=== PATIENT | female | born 1960 | race Native Hawaiian/Other Pacific Islander ===

== ENCOUNTER 2017-09-25 22:27 | Observation (INO) | payer OTHER ==
--- NOTE | 2017-09-26 00:30 | ED PDOC ---
Arrival/HPI <Gunnar Rucker - Last Filed: 09/26/17 03:16> - General Historian: Patient EM Caveat: Unstable Vital Signs - History of Present Illness Time/Duration: Prior to Arrival Symptom Onset: Gradual Symptom Course: Unchanged Quality: Aching (headache) Severity Level: Mild Activities at Onset: Rest Context: Sitting, Standing, Home <Antoinette Babin - Last Filed: 09/26/17 11:50> - General Chief Complaint: Headache Time Seen by Provider: 09/25/17 23:26 - History of Present Illness Narrative History of Present Illness (Text): 09/26/17 00:25 Pt is a 57 yo F c/o headache and chest discomfort x 2 days. Lately has felt "off" with head pain and racing heart. She is worried that she might have something going on with her heart and felt she needed to come in for evaluation. She describes her head pain as mild but annoying; she reports feeling slightly warm but not sweating with associated left shoulder pain. PMH includes HTN and DMII on medication. She took her meds this am as she always does and blood glucose was noted as 98. Denies chest pain, sob, fever, chills, syncope, GIB, or recent trauma. 09/26/17 02:24 09/26/17 02:26 09/26/17 03:27 (Antoinette Babni) Past Medical History - Provider Review Nursing Documentation Reviewed: Yes - Travel History Have you recently traveled outside [place] w/in the past 3 mons?: No - Infectious Disease Hx of Infectious Diseases: None - Tetanus Immunization Tetanus Immunization: Unknown - Reproductive Menopause: Yes - Cardiac Hx Cardiac Disorders: Yes Hx Hypertension: Yes - Pulmonary Hx Respiratory Disorders: Yes Hx Asthma: Yes - Neurological Hx Neurological Disorder: No - HEENT Hx HEENT Disorder: No - Renal Hx Renal Disorder: No - Endocrine/Metabolic Hx Endocrine Disorders: Yes Hx Diabetes Mellitus Type 2: Yes - Hematological/Oncological Hx Blood Disorders: No - Integumentary Hx Dermatological Disorder: No - Musculoskeletal/Rheumatological Hx Musculoskeletal Disorders: No - Gastrointestinal Hx Gastrointestinal Disorders: No - Genitourinary/Gynecological Hx Genitourinary Disorders: No - Psychiatric Hx Psychophysiologic Disorder: No Hx Substance Use: No - Surgical History Hx Dilation and Curettage: Yes <Antoinette Babin - Last Filed: 09/26/17 11:50> Family/Social History - Physician Review Nursing Documentation Reviewed: Yes Family/Social History: No Known Family HX Smoking Status: Never Smoked Hx Alcohol Use: Yes Frequency of alcohol use: Socially Hx Substance Use: No <Antoinette Babin - Last Filed: 09/26/17 11:50> Allergies/Home Meds <AlkaGunnar - Last Filed: 09/26/17 03:16> <Antoinette Babin - Last Filed: 09/26/17 11:50> Allergies/Adverse Reactions: Allergies Unobtainable Allergy (Verified 09/25/17 22:34) Home Medications: Home Meds Medication Instructions Recorded Confirmed Glimepiride [amaRYL] 2 mg PO DAILY 09/25/17 09/25/17 Telmisartan/Hydrochlorothiazid 1 tab PO DAILY 09/25/17 09/25/17 [Telmisartan-Hydrochlorothiazide 12.5 mg-80 mg] Review of Systems - Review of Systems Constitutional: Normal. absent: Fatigue, Weight Change, Fevers, Night Sweats, Other Eyes: Normal. absent: Vision Changes, Photophobia, Eye Pain, Other ENT: Normal. absent: Hearing Changes, Tinnitus, TMJ Pain, Voice Changes, Sore Throat, Rhinorrhea, Epistaxis, Sinus Congestion, Other Respiratory: Normal. absent: SOB, Cough, Sputum, Wheezing, Other Cardiovascular: Palpitations. absent: Normal, Chest Pain, Edema, Calf Pain, REDDY , Orthopnea, SY, Syncope, Other Gastrointestinal: Normal. absent: Abdominal Pain, Stool Changes, Constipation, Diarrhea, Nausea, Vomiting, Appetite Changes, Hematochezia, Hematemesis, Anorexia, Food Intolerance, Other Genitourinary Female: Normal Musculoskeletal: Normal Skin: Normal Neurological: Headache. absent: Normal, Dizziness, Focal Weakness, Gait Changes , Speech Changes, SC, Facial Droop, DE, Disequilibrium, SE, Seizure, Other Endocrine: Normal Hemo/Lymphatic: Normal Psychiatric: Normal <Antoinette Babin - Last Filed: 09/26/17 11:50> Physical Exam Vital Signs Reviewed: Yes Temperature: Afebrile Blood Pressure: Normal Pulse: Regular Respiratory Rate: Normal Appearance: Positive for: Well-Appearing, Comfortable Pain Distress: Mild Mental Status: Positive for: Alert and Oriented X 3 Finger Stick Blood Glucose: 112 - Systems Exam Head: Present: Atraumatic, Normocephalic, Tenderness (occipital ) Pupils: Present: PERRL Extroacular Muscles: Present: EOMI Conjunctiva: Present: Normal, Injected Ears: Present: Normal, NORMAL TM Mouth: Present: Moist Mucous Membranes Pharnyx: Present: Normal Neck: Present: Normal Range of Motion Respiratory/Chest: Present: Clear to Auscultation, Good Air Exchange. No: Respiratory Distress, Accessory Muscle Use Cardiovascular: Present: Normal S1, S2, Peripheal Pulses Present, Tachycardic. No: Murmurs Abdomen: Present: Normal Bowel Sounds. No: Tenderness, Distention, Peritoneal Signs Back: Present: Normal Inspection Upper Extremity: Present: Normal Inspection. No: Cyanosis, Edema Lower Extremity: Present: Normal Inspection. No: Edema Neurological: Present: GCS=15, CN II-XII Intact, Speech Normal Skin: Present: Warm, Dry, Normal Color. No: Rashes Psychiatric: Present: Alert, Oriented x 3, Normal Insight, Normal Concentration <Antoinette Babin - Last Filed: 09/26/17 11:50> Vital Signs Temp Pulse Resp BP Pulse Ox 09/26/17 11:18 95 H 17 164/93 H 100 09/26/17 09:29 160/90 H 09/26/17 09:25 98 H 18 100 09/26/17 07:30 98 F 80 18 151/95 H 98 09/26/17 05:50 83 17 140/93 H 99 09/26/17 05:05 85 158/103 H 09/26/17 04:38 83 18 161/100 H 99 09/26/17 01:13 76 18 170/104 H 99 09/25/17 22:52 97.7 F 103 H 18 179/96 H 99 Medical Decision Making <Gunnar Rucker - Last Filed: 09/26/17 03:16> - Lab Interpretations I have reviewed the lab results: Yes - EKG Interpretation Interpreted by ED Physician: Yes (NSR) <Antoinette Babin - Last Filed: 09/26/17 11:50> ED Course and Treatment: Pt is a 57 yo F c/o headache x 2 days. PMH includes HTN and DMII on medication. Plan: 1. workup for ACS-->cbc, cmp, trop., cxr, cardiac enzymes 2. UTI-->UA 3. Influenza-->Rapid Flu Iv fluids given (1L over 60 mins); pt remains anxious with new symptom of ' heartburn' Resident was contacted to admit the patient to remote telemetry for observation Dr. Dexter consulted (Antoinette Babin) - Lab Interpretations Lab Results: 09/26/17 00:50 09/26/17 00:50 Lab Results 09/26/17 00:50: Thyroxine (T4) 7.5, Total T3 1.35, TSH 3rd Generation 3.51 09/26/17 00:50: Urine Color Yellow, Urine Appearance Clear, Urine pH 6.0, Ur Specific [place] 1.010, Urine Protein Negative, Urine Glucose (UA) Negative, Urine Ketones Negative, Urine Blood Negative, Urine Nitrate Negative, Urine Bilirubin Negative, Urine Urobilinogen 0.2, Ur Leukocyte Esterase Trace H, Urine RBC 0 - 2, Urine WBC 0 - 2, Ur Epithelial Cells 0 - 2 09/26/17 00:50: Sodium 139, Potassium 4.1, Chloride 101, Carbon Dioxide 29, Anion Gap 13, BUN 16, Creatinine 0.6 L, Est GFR ( Amer) > 60, Est GFR ( Non-Af Amer) > 60, Random Glucose 75, Calcium 10.1, Total Bilirubin 0.6, AST 37 H, ALT 38, Alkaline Phosphatase 98, Lactate Dehydrogenase 761 H, Total Creatine Kinase 172, Troponin I < 0.01, Total Protein 8.2, Albumin 4.8, Globulin 3.4, Albumin/Globulin Ratio 1.4 09/26/17 00:50: WBC 8.5, RBC 4.84, Hgb 14.4, Hct 41.8, MCV 86.4, MCH 29.8, MCHC 34.4, RDW 15.7 H, Plt Count 254, MPV 10.0, Gran % 41.0 L, Lymph % (Auto) 46.4 H , [place] % (Auto) 8.3 H, Eos % (Auto) 3.7, Baso % (Auto) 0.6, Gran # 3.50, Lymph # 4.0 H, [place] # 0.7 H, Eos # 0.3, Baso # 0.05 - RAD Interpretation Radiology Orders: 09/26/17 02:43 CHEST TWO VIEWS (PA/LAT) [RAD] Stat - Medication Orders Current Medication Orders: Losartan Potassium (Cozaar) 100 mg PO DAILY [facility] Last Admin: 09/26/17 11:21 Dose: 100 mg Metoprolol Tartrate (Lopressor) 12.5 mg PO BID ROX Pantoprazole Sodium (Protonix Inj) 40 mg IVP DAILY [facility] Last Admin: 09/26/17 11:20 Dose: 40 mg IVP Administration Document 09/26/17 11:20 SF (Rec: 09/26/17 11:21 SF [id number]) Charges for Administration # of IVP Administrations 1 Discontinued Medications Hydralazine HCl (Apresoline) 5 mg IVP STAT STA Stop: 09/26/17 04:50 Last Admin: 09/26/17 05:05 Dose: 5 mg IVP Administration Document 09/26/17 05:05 RD (Rec: 09/26/17 05:05 RD [id number]) Charges for Administration # of IVP Administrations 1 OCT Pulse and Blood Pressure Document 09/26/17 05:05 RD (Rec: 09/26/17 05:05 RD [id number]) Pulse Pulse Rate (60-90) 85 Blood Pressure Blood Pressure (100/60-150/90) 158/103 Sodium Chloride (Sodium Chloride 0.9%) 1,000 mls @ 999 mls/hr IV .Q1H1M STA Stop: 09/26/17 03:56 Last Admin: 09/26/17 04:47 Dose: 999 mls/hr eMAR Start Stop Document 09/26/17 04:47 RD (Rec: 09/26/17 04:48 RD [id number]) Intravenous Solution Start Date 09/26/17 Start Time 04:47 End Date 09/26/17 End time 05:47 Total Infusion Time 60 - PA / [employer]IN[employer] / Resident Statement DENICE has reviewed & agrees with the documentation as recorded. DENICE has examined the patient and agrees with the treatment plan. <Gunnar Rucker - Last Filed: 09/26/17 03:16> Disposition/Present on Arrival <Gunnar Rucker - Last Filed: 09/26/17 03:16> - Present on Arrival Any Indicators Present on Arrival: No History of DVT/PE: No History of Uncontrolled Diabetes: No Urinary Catheter: No History of Decub. Ulcer: No History Surgical Site Infection Following: None - Disposition Have Diagnosis and Disposition been Completed?: Yes Disposition Time: 02:45 Patient Plan: Admission <Antoinette Babin - Last Filed: 09/26/17 11:50> - Disposition Diagnosis: Headache, Tachycardia, Chest discomfort Disposition: HOME/ ROUTINE Patient Problems: Current Active Problems Problem Status Onset Headache Acute Tachycardia Acute Condition: STABLE
[2017-09-26 01:19] LABS: BASO # 0.05 K/mm3 (0.0-2.0); BASO % 0.6 % (0.0-3.0); EOS # 0.3 (0.0-0.7); EOS % 3.7 % (1.5-5.0); GRAN # 3.5 (1.4-6.5); HEMOGLOBIN 14.4 g/dL (12.0-16.0); LYMPH % 46.4 % (22.0-35.0); MEAN CELL VOLUME 86.4 fl (80.0-105.0); MEAN CORPUSCULAR HEMOGLOBIN 29.8 pg (25.0-35.0); MEAN CORPUSCULAR HGB CONC 34.4 g/dl (31.0-37.0); MONO # 0.7 (0.1-0.6); MONO % 8.3 % (1.0-6.0); RBC 4.84 10^6/uL (3.5-6.1); RED CELL DISTRIBUTION WIDTH 15.7 % (11.5-14.5); WHITE BLOOD COUNT 8.5 10^3/ul (4.5-11.0)
[2017-09-26 01:25] LABS: URINE BILIRUBIN NEGATIVE (NEGATIVE); URINE BLOOD NEGATIVE (NEGATIVE); URINE GLUCOSE (UA) NEGATIVE (NEGATIVE); URINE LEUKOCYTE ESTERASE TRACE Leu/uL (NEGATIVE); URINE NITRATE NEGATIVE (NEGATIVE); URINE PROTEIN NEGATIVE mg/dL (<30 mg/dL); URINE UROBILINOGEN 0.2 E.U./dL (<1 E.U./dL)
[2017-09-26 01:26] LABS: URINE APPEARANCE CLEAR (CLEAR); URINE COLOR YELLOW (YELLOW)
[2017-09-26 01:43] LABS: URINE EPITHELIAL CELLS 0 - 2 /hpf (0-5); URINE RBC 0 - 2 /hpf (0-2); URINE WBC 0 - 2 /hpf (0-6)
[2017-09-26 01:57] LABS: ALB/GLOB RATIO 1.4 (1.1-1.8); ALBUMIN 4.8 g/dL (3.0-4.8); ALT/SGPT 38 U/L (7-56); AST/SGOT 37 U/L (14-36); BLOOD UREA NITROGEN 16 mg/dL (7-21); CALCIUM 10.1 mg/dL (8.4-10.5); GFR AFRICAN-AMERICAN > 60; GFR NON-AFRICAN AMERICAN > 60
[2017-09-26 02:00] LABS: TROPONIN I < 0.01 ng/mL
[2017-09-26] MEDS ORDERED: Sodium Chloride 0.9% 1,000 ML IV STA (02:56)
--- NOTE | 2017-09-26 04:54 | CP.PCM.HP ---
<Logan Bell - Last Filed: 09/26/17 06:04> History of Present Illness - History of Present Illness History of Present Illness: Chief Complaint: Chronic shoulder pain and headache HPI: Patient is a 57 year old female with a past medical history significant for hypertension, NIDDM and anxiety who presents with complaints of headache for the past few days along with shoulder pain which extends to her neck which has been going on for the past 6 months. States the headache is a 6/10 and wraps around her entire head; waxes and wanes. Patient notices the headache is related to hypertension. Patient denies chills, fever, abdominal pain, nausea, vomiting, diarrhea, chest pain. PMD: Dr. Silver Present medical illnesses: Hypertension,NIDDM, Anxiety Medications: As per MAR, patient does not seem compliant with her medications. Also mentions taking xanax from time to time. Surgical history: denies [place]iges: denies Family history: denies Social history: denies tobacco, alcohol, illicit drug use. Patient lives alone, never , without children. 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 times to [place] to care for a patient Present on Admission - Present on Admission Any Indicators Present on Admission: No Review of Systems - Review of Systems Systems not reviewed;Unavailable: Acuity of Condition - Constitutional Constitutional: absent: Chills, Fever - EENT Eyes: absent: Blurred Vision, Change in Vision Nose/Mouth/Throat: absent: Nasal Congestion, Dysphagia - Cardiovascular Cardiovascular: absent: Chest Pain, Paroxysmal Nocturnal Dyspnea - Respiratory Respiratory: absent: Cough, Dyspnea - Gastrointestinal Gastrointestinal: absent: Abdominal Pain, Diarrhea, Nausea, Vomiting - Genitourinary Genitourinary: absent: Dysuria, Hematuria - Musculoskeletal Musculoskeletal: absent: Arthralgias, Back Pain - Neurological Neurological: absent: Dizziness, Numbness - Psychiatric Psychiatric: Anxiety Past Patient History - Infectious Disease Hx of Infectious Diseases: None - Tetanus Immunizations Tetanus Immunization: Unknown - Past Social History Smoking Status: Never Smoked - CARDIAC Hx Cardiac Disorders: Yes Hx Hypertension: Yes - PULMONARY Hx Respiratory Disorders: Yes Hx Asthma: Yes - NEUROLOGICAL Hx Neurological Disorder: No - HEENT Hx HEENT Problems: No - RENAL Hx Chronic Kidney Disease: No - ENDOCRINE/METABOLIC Hx Endocrine Disorders: Yes Hx Diabetes Mellitus Type 2: Yes - HEMATOLOGICAL/ONCOLOGICAL Hx Blood Disorders: No - INTEGUMENTARY Hx Dermatological Problems: No - MUSCULOSKELETAL/RHEUMATOLOGICAL Hx Musculoskeletal Disorders: No - GASTROINTESTINAL Hx Gastrointestinal Disorders: No - GENITOURINARY/GYNECOLOGICAL Hx Genitourinary Disorders: No - PSYCHIATRIC Hx Psychophysiologic Disorder: No Hx Substance Use: No - SURGICAL HISTORY Hx Dilation and Curettage: Yes Meds Home Medications: Home Medication List Medication Instructions Recorded Confirmed Type Losartan [Cozaar] 100 mg PO DAILY 30 Days tab 09/27/17 Rx Metoprolol Tartrate [Lopressor] 12.5 mg PO BID 30 Days tab 09/27/17 Rx Naproxen [Anaprox DS] 550 mg PO BID #14 tab 09/27/17 Rx Allergies/Adverse Reactions: Allergies Allergy/AdvReac Type Severity Reaction Status Date / Time No Known Allergies Allergy Verified 09/26/17 12:46 Physical Exam - Constitutional Appears: Non-toxic, No Acute Distress - Head Exam Head Exam: ATRAUMATIC, NORMAL INSPECTION, NORMOCEPHALIC - Eye Exam Eye Exam: EOMI, Normal appearance - ENT Exam ENT Exam: Mucous Membranes Moist, Normal Exam - Respiratory Exam Respiratory Exam: Clear to Auscultation Bilateral, NORMAL BREATHING PATTERN. absent: Rhonchi, Wheezes - Cardiovascular Exam Cardiovascular Exam: REGULAR RHYTHM, +S1, +S2 - GI/Abdominal Exam GI & Abdominal Exam: Normal Bowel Sounds, Soft - Extremities Exam Extremities exam: Positive for: normal inspection - Neurological Exam Neurological exam: Alert, CN II-XII Intact, Oriented x3 - Psychiatric Exam Psychiatric exam: Anxious - Skin Skin Exam: Intact, Normal Color, Warm Results - Vital Signs Recent Vital Signs: Last Vital Signs Temp 97.7 F 09/25/17 22:52 Pulse 83 09/26/17 04:38 Resp 18 09/26/17 04:38 BP 161/100 H 09/26/17 04:38 Pulse Ox 99 09/26/17 04:38 - Labs Result Diagrams: 09/26/17 00:50 09/26/17 00:50 Assessment & Plan - Assessment and Plan (Free Text) Assessment: Patient is a 57 year old female with a past medical history significant for hypertension, NIDDM and anxiety who presents with complaints of headache for the past few days along with shoulder pain which extends to her neck which has been going on for the past 6 months. Plan: Chronic shoulder pain -Troponin series ordered; monitor -Consider x-rays; patient denies trauma Headache -Most likely due to hypertension; which was not treated while patient was in the ED -Patient given hydralazine. Continue to monitor vitals -Restart patient's home BP medication and also monitor. Patient seems to be non compliant with medications -CT head w/o contrast ordered; results pending History of hypoglycemia -HgA1C ordered; results pending -q6 ACHS -Hold medication until blood glucose is well monitored considering patient's history of hypoglycemia. Anxiety -Psychiatry consulted; recommendations appreciated -TSH, T4 and T3 DVT/GI prophylaxis SCDs/Protonix <Danni Dexter N - Last Filed: 10/01/17 00:41> Results - Vital Signs Recent Vital Signs: Last Vital Signs Temp 97.7 F 09/25/17 22:52 Pulse 83 09/26/17 05:50 Resp 17 09/26/17 05:50 BP 140/93 H 09/26/17 05:50 Pulse Ox 99 09/26/17 05:50 - Labs Result Diagrams: 09/26/17 06:50 09/26/17 06:50 Labs: Laboratory Results - last 24 hr 09/26/17 05:00 Influenza Typ A,B (EIA) Negative for flu a/b
[2017-09-26 05:33] LABS: T4 7.5 ug/dL (5.5-11.0)
[2017-09-26 05:47] LABS: T3 1.35 ng/mL (0.97-1.69)
[2017-09-26 07:15] LABS: BASO # 0.06 K/mm3 (0.0-2.0); BASO % 0.8 % (0.0-3.0); EOS # 0.3 (0.0-0.7); EOS % 3.4 % (1.5-5.0); GRAN # 3.71 (1.4-6.5); GRAN % 46.9 % (50.0-68.0); HEMOGLOBIN 14.3 g/dL (12.0-16.0); LYMPH # 3.4 (1.2-3.4); LYMPH % 42.8 % (22.0-35.0); MEAN CORPUSCULAR HEMOGLOBIN 29.5 pg (25.0-35.0); MEAN CORPUSCULAR HGB CONC 34.3 g/dl (31.0-37.0); MEAN PLATELET VOLUME 10.1 fl (7.0-11.0); MONO # 0.5 (0.1-0.6); MONO % 6.1 % (1.0-6.0); RBC 4.85 10^6/uL (3.5-6.1); RED CELL DISTRIBUTION WIDTH 15.6 % (11.5-14.5); WHITE BLOOD COUNT 7.9 10^3/ul (4.5-11.0)
[2017-09-26 07:34] LABS: TROPONIN I < 0.01 ng/mL
[2017-09-26 07:50] LABS: ALB/GLOB RATIO 1.4 (1.1-1.8); ALBUMIN 4.5 g/dL (3.0-4.8); ALT/SGPT 37 U/L (7-56); AST/SGOT 28 U/L (14-36); BLOOD UREA NITROGEN 11 mg/dL (7-21); GFR AFRICAN-AMERICAN > 60; GFR NON-AFRICAN AMERICAN > 60; HDL CHOLESTEROL 78 mg/dL (29-60); MAGNESIUM 2.2 mg/dL (1.7-2.2)
[2017-09-26 07:54] LABS: LDL CHOLESTEROL 70 mg/dL (0-129)
--- NOTE | 2017-09-26 08:51 | CT ---
PROCEDURE: CT HEAD WITHOUT CONTRAST. HISTORY: confusion COMPARISON: None available. TECHNIQUE: Axial computed tomography images were obtained through the head/brain without intravenous contrast. Radiation dose: Total exam DLP = 839.31 mGy-cm. This CT exam was performed using one or more of the following dose reduction techniques: Automated exposure control, adjustment of the mA and/or kV according to patient size, and/or use of iterative reconstruction technique. FINDINGS: HEMORRHAGE: No intracranial hemorrhage. BRAIN: No mass effect or edema. Bilateral basal ganglia calcifications. The torres-white matter differentiation appears intact. Please note that MRI with diffusion imaging is more sensitive in the detection of acute ischemic event. VENTRICLES: No hydrocephalus. CALVARIUM: Unremarkable. PARANASAL SINUSES: Unremarkable as visualized. No significant inflammatory changes. MASTOID AIR CELLS: Unremarkable as visualized. No inflammatory changes. OTHER FINDINGS: None. IMPRESSION: No acute intracranial pathology identified.
--- NOTE | 2017-09-26 09:21 | RAD ---
HISTORY: chest discomfort COMPARISON: None available. TECHNIQUE: Chest PA and lateral FINDINGS: LUNGS: No focal consolidation. Please note that chest x-ray has limited sensitivity for the detection of pulmonary masses. PLEURA: No significant pleural effusion identified. No definite pneumothorax . CARDIOVASCULAR: Heart size appears within normal limits. OSSEOUS STRUCTURES: No acute osseous abnormality identified. VISUALIZED UPPER ABDOMEN: Unremarkable. OTHER FINDINGS: None. IMPRESSION: No focal consolidation, significant pleural effusion, or definite pneumothorax identified.
[2017-09-26 13:26] VITALS: BMI 26.9
[2017-09-26] MEDS ORDERED: Pneumococcal 23-Valent Vaccine IM ONE (13:26)
[2017-09-26] MEDS ORDERED: Influenza Vaccine 60 mcg/0.5 mL SYR (4YR UP) IM ONE (13:26)
--- NOTE | 2017-09-26 18:14 | CARD ---
APPROVED REPORT EKG Measurement Heart [id number] CO [id number] <Conclusion> Normal sinus rhythm Normal ECG
[2017-09-27] MEDS ORDERED: Pantoprazole 40 mg EC Tab PO SCH (07:30)
[2017-09-27 10:22] VITALS: BP 113/76; PULSE 75; RESP 20; TEMP 97.9; O2SAT 97
--- NOTE | 2017-09-27 11:11 | CP.PCM.DIS ---
<Alisha Rangel - Last Filed: 09/27/17 14:45> Provider - Provider Date of Admission: 09/26/17 03:23 Attending physician: Leonid Kasper MD Consults: Psych Time Spent in preparation of Discharge (in minutes): 35 Diagnosis - Discharge Diagnosis (1) Shoulder pain Status: Acute (2) Dizziness Status: Acute Hospital Course - Lab Results Lab Results: Most Recent Lab Values WBC 7.9 10^3/ul (4.5-11.0) 09/26/17 06:50 RBC 4.85 10^6/uL (3.5-6.1) 09/26/17 06:50 Hgb 14.3 g/dL (12.0-16.0) 09/26/17 06:50 Hct 41.7 % (36.0-48.0) 09/26/17 06:50 MCV 86.0 fl (80.0-105.0) 09/26/17 06:50 MCH 29.5 pg (25.0-35.0) 09/26/17 06:50 MCHC 34.3 g/dl (31.0-37.0) 09/26/17 06:50 RDW 15.6 % (11.5-14.5) H 09/26/17 06:50 Plt Count 251 10^3/uL (120.0-450.0) 09/26/17 06:50 MPV 10.1 fl (7.0-11.0) 09/26/17 06:50 Gran % 46.9 % (50.0-68.0) L 09/26/17 06:50 Lymph % (Auto) 42.8 % (22.0-35.0) H 09/26/17 06:50 [place] % (Auto) 6.1 % (1.0-6.0) H 09/26/17 06:50 Eos % (Auto) 3.4 % (1.5-5.0) 09/26/17 06:50 Baso % (Auto) 0.8 % (0.0-3.0) 09/26/17 06:50 Gran # 3.71 (1.4-6.5) 09/26/17 06:50 Lymph # 3.4 (1.2-3.4) 09/26/17 06:50 [place] # 0.5 (0.1-0.6) 09/26/17 06:50 Eos # 0.3 (0.0-0.7) 09/26/17 06:50 Baso # 0.06 K/mm3 (0.0-2.0) 09/26/17 06:50 Sodium 141 mmol/L (132-148) 09/26/17 06:50 Potassium 3.7 mmol/L (3.6-5.0) 09/26/17 06:50 Chloride 103 mmol/L (98-107) 09/26/17 06:50 Carbon Dioxide 26 mmol/L (21-33) 09/26/17 06:50 Anion Gap 15 (10-20) 09/26/17 06:50 BUN 11 mg/dL (7-21) 09/26/17 06:50 Creatinine 0.5 mg/dl (0.7-1.2) L 09/26/17 06:50 Est GFR ( Amer) > 60 09/26/17 06:50 Est GFR (Non-Af Amer) > 60 09/26/17 06:50 POC Glucose (mg/dL) 122 mg/dL (65-110) H 09/27/17 08:35 Random Glucose 113 mg/dL (70-110) H 09/26/17 06:50 Hemoglobin A1c 6.0 % (4.2-6.5) 09/26/17 00:50 Calcium 10.0 mg/dL (8.4-10.5) 09/26/17 06:50 Phosphorus 3.5 mg/dL (2.5-4.5) 09/26/17 06:50 Magnesium 2.2 mg/dL (1.7-2.2) 09/26/17 06:50 Total Bilirubin 0.8 mg/dL (0.2-1.3) 09/26/17 06:50 AST 28 U/L (14-36) 09/26/17 06:50 ALT 37 U/L (7-56) 09/26/17 06:50 Alkaline Phosphatase 85 U/L (38-126) 09/26/17 06:50 Lactate Dehydrogenase 761 U/L (333-699) H 09/26/17 00:50 Total Creatine Kinase 172 U/L (35-230) 09/26/17 00:50 Troponin I < 0.01 ng/mL 09/26/17 12:10 Total Protein 7.7 g/dL (5.8-8.3) 09/26/17 06:50 Albumin 4.5 g/dL (3.0-4.8) 09/26/17 06:50 Globulin 3.2 gm/dL 09/26/17 06:50 Albumin/Globulin Ratio 1.4 (1.1-1.8) 09/26/17 06:50 Triglycerides 95 mg/dL (35-160) 09/26/17 06:50 Cholesterol 181 mg/dL (130-200) 09/26/17 06:50 LDL Cholesterol Direct 70 mg/dL (0-129) 09/26/17 06:50 HDL Cholesterol 78 mg/dL (29-60) H 09/26/17 06:50 Thyroxine (T4) 7.5 ug/dL (5.5-11.0) 09/26/17 00:50 Total T3 1.35 ng/mL (0.97-1.69) 09/26/17 00:50 TSH 3rd Generation 3.51 mIU/mL (0.46-4.68) 09/26/17 00:50 Urine Color Yellow (YELLOW) 09/26/17 00:50 Urine Appearance Clear (CLEAR) 09/26/17 00:50 Urine pH 6.0 (4.7-8.0) 09/26/17 00:50 Ur Specific [place] 1.010 (1.005-1.035) 09/26/17 00:50 Urine Protein Negative mg/dL (<30 mg/dL) 09/26/17 00:50 Urine Glucose (UA) Negative mg/dL (NEGATIVE) 09/26/17 00:50 Urine Ketones Negative mg/dL (NEGATIVE) 09/26/17 00:50 Urine Blood Negative (NEGATIVE) 09/26/17 00:50 Urine Nitrate Negative (NEGATIVE) 09/26/17 00:50 Urine Bilirubin Negative (NEGATIVE) 09/26/17 00:50 Urine Urobilinogen 0.2 E.U./dL (<1 E.U./dL) 09/26/17 00:50 Ur Leukocyte Esterase Trace Steph/uL (NEGATIVE) H 09/26/17 00:50 Urine RBC 0 - 2 /hpf (0-2) 09/26/17 00:50 Urine WBC 0 - 2 /hpf (0-6) 09/26/17 00:50 Ur Epithelial Cells 0 - 2 /hpf (0-5) 09/26/17 00:50 Influenza Typ A,B (EIA) Negative for flu a/b (NEGATIVE) 09/26/17 05:00 - Hospital Course Hospital Course: 57 year old female with a past medical history significant for hypertension, NIDDM and anxiety who presents with complaints of headache for the past few days along with shoulder pain which extends to her neck which has been going on for the past 6 months. States the headache is a 6/10 and wraps around her entire head; waxes and wanes. Patient notices the headache is related to hypertension. Patient denies chills, fever, abdominal pain, nausea, vomiting, diarrhea, chest pain. Pt also complained of dizziness for past few days. CT head neg for any acute changes. Pt hemodynamically stable, troponins negative x3 , EKG shows no ST-T wave changes. Orthostatic vital signs negative. Pt was on hydrocholorthiazide at home, which could contribute to her dizziness, medication discontinued. Pt started on Metprolol. Pt instructed to get up slowly , dangle her legs at bedside, then get from supine to standing position. Pt's symptoms improved and dizziness resolved. At discharge, pt instructed to dsicard her home anti-htn medications and given scripts for Metoprolol and Losartan. Pt discharged with Naproxen for shoulder and instructed to follow up with PMD in 1 week. Discharge Exam - Head Exam Head Exam: ATRAUMATIC, NORMAL INSPECTION, NORMOCEPHALIC - Eye Exam Eye Exam: EOMI, PERRL. absent: Conjunctival injection, Scleral icterus Pupil Exam: NORMAL ACCOMODATION, PERRL. absent: Irregular, Unequal - ENT Exam ENT Exam: Mucous Membranes Moist - Neck Exam Neck exam: Full Rom - Respiratory Exam Respiratory Exam: Clear to PA & Lateral, NORMAL BREATHING PATTERN. absent: Accessory Muscle Use, Rhonchi, Wheezes, Stridor - Cardiovascular Exam Cardiovascular Exam: RRR, +S1, +S2. absent: Systolic Murmur - GI/Abdominal Exam GI & Abdominal Exam: Normal Bowel Sounds, Soft. absent: Distended, Guarding, Organomegaly, Tenderness - Extremities Exam Extremities exam: normal inspection - Back Exam Back exam: NORMAL INSPECTION - Neurological Exam Neurological exam: Alert, Oriented x3 - Psychiatric Exam Psychiatric exam: Normal Affect, Normal Mood - Skin Skin Exam: Dry, Normal Color, Warm Discharge Plan - Discharge Medications Prescriptions: Losartan [Cozaar] 100 mg PO DAILY 30 Days tab Metoprolol Tartrate [Lopressor] 12.5 mg PO BID 30 Days tab Naproxen [Anaprox DS] 550 mg PO BID #14 tab - Follow Up Plan Condition: STABLE Disposition: HOME/ ROUTINE Instructions: Dizziness (GEN), Shoulder Pain (GEN) Additional Instructions: - Stop take the combination blood pressure medicine at home because one of the medications may be causing dizziness. You are given scripts for Metoprolol and Losartan to take at home. - Take Regular salt diet at home. - While getting up, dangle your legs at bedside for a few minutes (as instructed in the hospital) to avoid dizziness. - Take Naproxen at home for the shoulder pain. - F/u with PMD in 1 week. - Return to the ER if any concerns. <Leonid Kasper - Last Filed: 09/27/17 17:49> Provider - Provider Date of Admission: 09/26/17 03:23 Attending physician: Leonid Kasper MD Hospital Course - Lab Results Lab Results: Most Recent Lab Values WBC 7.9 10^3/ul (4.5-11.0) 09/26/17 06:50 RBC 4.85 10^6/uL (3.5-6.1) 09/26/17 06:50 Hgb 14.3 g/dL (12.0-16.0) 09/26/17 06:50 Hct 41.7 % (36.0-48.0) 09/26/17 06:50 MCV 86.0 fl (80.0-105.0) 09/26/17 06:50 MCH 29.5 pg (25.0-35.0) 09/26/17 06:50 MCHC 34.3 g/dl (31.0-37.0) 09/26/17 06:50 RDW 15.6 % (11.5-14.5) H 09/26/17 06:50 Plt Count 251 10^3/uL (120.0-450.0) 09/26/17 06:50 MPV 10.1 fl (7.0-11.0) 09/26/17 06:50 Gran % 46.9 % (50.0-68.0) L 09/26/17 06:50 Lymph % (Auto) 42.8 % (22.0-35.0) H 09/26/17 06:50 [place] % (Auto) 6.1 % (1.0-6.0) H 09/26/17 06:50 Eos % (Auto) 3.4 % (1.5-5.0) 09/26/17 06:50 Baso % (Auto) 0.8 % (0.0-3.0) 09/26/17 06:50 Gran # 3.71 (1.4-6.5) 09/26/17 06:50 Lymph # 3.4 (1.2-3.4) 09/26/17 06:50 [place] # 0.5 (0.1-0.6) 09/26/17 06:50 Eos # 0.3 (0.0-0.7) 09/26/17 06:50 Baso # 0.06 K/mm3 (0.0-2.0) 09/26/17 06:50 Sodium 141 mmol/L (132-148) 09/26/17 06:50 Potassium 3.7 mmol/L (3.6-5.0) 09/26/17 06:50 Chloride 103 mmol/L (98-107) 09/26/17 06:50 Carbon Dioxide 26 mmol/L (21-33) 09/26/17 06:50 Anion Gap 15 (10-20) 09/26/17 06:50 BUN 11 mg/dL (7-21) 09/26/17 06:50 Creatinine 0.5 mg/dl (0.7-1.2) L 09/26/17 06:50 Est GFR ( Amer) > 60 09/26/17 06:50 Est GFR (Non-Af Amer) > 60 09/26/17 06:50 POC Glucose (mg/dL) 172 mg/dL (65-110) H 09/27/17 11:07 Random Glucose 113 mg/dL (70-110) H 09/26/17 06:50 Hemoglobin A1c 6.0 % (4.2-6.5) 09/26/17 00:50 Calcium 10.0 mg/dL (8.4-10.5) 09/26/17 06:50 Phosphorus 3.5 mg/dL (2.5-4.5) 09/26/17 06:50 Magnesium 2.2 mg/dL (1.7-2.2) 09/26/17 06:50 Total Bilirubin 0.8 mg/dL (0.2-1.3) 09/26/17 06:50 AST 28 U/L (14-36) 09/26/17 06:50 ALT 37 U/L (7-56) 09/26/17 06:50 Alkaline Phosphatase 85 U/L (38-126) 09/26/17 06:50 Lactate Dehydrogenase 761 U/L (333-699) H 09/26/17 00:50 Total Creatine Kinase 172 U/L (35-230) 09/26/17 00:50 Troponin I < 0.01 ng/mL 09/26/17 12:10 Total Protein 7.7 g/dL (5.8-8.3) 09/26/17 06:50 Albumin 4.5 g/dL (3.0-4.8) 09/26/17 06:50 Globulin 3.2 gm/dL 09/26/17 06:50 Albumin/Globulin Ratio 1.4 (1.1-1.8) 09/26/17 06:50 Triglycerides 95 mg/dL (35-160) 09/26/17 06:50 Cholesterol 181 mg/dL (130-200) 09/26/17 06:50 LDL Cholesterol Direct 70 mg/dL (0-129) 09/26/17 06:50 HDL Cholesterol 78 mg/dL (29-60) H 09/26/17 06:50 Thyroxine (T4) 7.5 ug/dL (5.5-11.0) 09/26/17 00:50 Total T3 1.35 ng/mL (0.97-1.69) 09/26/17 00:50 TSH 3rd Generation 3.51 mIU/mL (0.46-4.68) 09/26/17 00:50 Urine Color Yellow (YELLOW) 09/26/17 00:50 Urine Appearance Clear (CLEAR) 09/26/17 00:50 Urine pH 6.0 (4.7-8.0) 09/26/17 00:50 Ur Specific [place] 1.010 (1.005-1.035) 09/26/17 00:50 Urine Protein Negative mg/dL (<30 mg/dL) 09/26/17 00:50 Urine Glucose (UA) Negative mg/dL (NEGATIVE) 09/26/17 00:50 Urine Ketones Negative mg/dL (NEGATIVE) 09/26/17 00:50 Urine Blood Negative (NEGATIVE) 09/26/17 00:50 Urine Nitrate Negative (NEGATIVE) 09/26/17 00:50 Urine Bilirubin Negative (NEGATIVE) 09/26/17 00:50 Urine Urobilinogen 0.2 E.U./dL (<1 E.U./dL) 09/26/17 00:50 Ur Leukocyte Esterase Trace Steph/uL (NEGATIVE) H 09/26/17 00:50 Urine RBC 0 - 2 /hpf (0-2) 09/26/17 00:50 Urine WBC 0 - 2 /hpf (0-6) 09/26/17 00:50 Ur Epithelial Cells 0 - 2 /hpf (0-5) 09/26/17 00:50 Influenza Typ A,B (EIA) Negative for flu a/b (NEGATIVE) 09/26/17 05:00 Attending/Attestation - Attestation I have personally seen and examined this patient.: Yes I have fully participated in the care of the patient.: Yes I have reviewed all pertinent clinical information, including history, physical exam and plan: Yes Notes (Text): 09/27/17 17:44 Patient was seen and examined with biomedical specialist. Agreed with assessment and plan. 57 yrs old femmale with PMH of HTN was admitted with dizziness , Presyncope while standing, no H/O fall.There is no focal defict. Patient was monitored in telemetry, Tele is negative for arrythmia. Patient symptoms are likely due to ortho static hypotension.Patient HCTZ has been discontinued. Blood pressure is controlled with Metoprolol and Losartan. She is ambulatory.She will be discharged home and will follow up with PCP. Management plan was discussed in detail with patient. Education was provided.
[2017-09-27] MEDS ORDERED: Insulin Lispro (humaLOG) LOW Coverage SC SCH (11:30)
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
== END 2017-09-27 12:30 | disposition home or self-care (01) ==
LOC: ED 22:27 → ERH 09-26 03:23 → 3RNO 09-26 20:05
PROVIDERS: ADMIT Hospitalist; ATTEND Internal Medicine
DX: I10 Essential (primary) hypertension (principal); R07.89 Other chest pain; M25.512 Pain in left shoulder; I95.1 Orthostatic hypotension; R51 Headache; E11.9 Type 2 diabetes mellitus without complications; R42 Dizziness and giddiness; F39 Unspecified mood [affective] disorder; F41.9 Anxiety disorder, unspecified; R00.0 Tachycardia, unspecified; Z79.84 Long term (current) use of oral hypoglycemic drugs; Z91.19 Patient's noncompliance with other medical treatment and regimen
CPT/HCPCS: 70450; 71046; 80053; 80061; 81001; 82550; 82948; 83036; 83615; 83735; 84100; 84436; 84443; 84480; 84484; 85025; 87086; 87804; 93005; 96361; 96374; 96375; 97116; 97161; 99285; C9113; G0378; G8978; G8979; G8980; J0360; J7040